=== PATIENT | female | born 1935 | race Caucasian/White ===

== ENCOUNTER 2016-11-28 10:21 | Emergency (ER) | payer MEDICARE, OTHER ==
[2016-11-28 10:29] VITALS: BP 158/84
[2016-11-28] MEDS ORDERED: DIPH/PERTUSS(ACELL)/TETANUS VAC/PF 0.5 ML SYR (>=10YO) IM ONE (11:10)
[2016-11-28] MEDS ORDERED: LIDOCAINE 1% INJ-PF (10 MG/ML) 30 ML SDV INJ ONE (11:10)
--- NOTE | 2016-11-28 11:11 | ER Document Report ---
ED ENT - General Chief Complaint: Ear Injury Stated Complaint: FALL/LEFT EAR INJURY Time Seen by Provider: 11/28/16 10:48 Mode of Arrival: Ambulatory Information source: Patient Notes: Patient is an 81-year-old female who presents to the ER today after falling on a piano, only hitting her left ear on something metal sticking up out of the piano that she does not know what it was. Patient states that she did not realize anything was wrong, nor feel any pain until she had someone tell her that her ear had a cut. She states bleeding is controlled. She is not on any blood thinners. She does not know when her last tetanus booster was. TRAVEL OUTSIDE OF THE [place] IN LAST 30 DAYS: No - Related Data Allergies/Adverse Reactions: No Known Allergies Allergy (Verified 11/28/16 10:28) Past Medical History - General Information source: Patient - Social History Smoking Status: Never Smoker Chew tobacco use (# tins/day): No Frequency of alcohol use: None Drug Abuse: None Family History: Reviewed & Not Pertinent Patient has suicidal ideation: No Patient has homicidal ideation: No - Past Medical History Cardiac Medical History: Reports: Hx Hypertension - [place] Denies: Hx Heart Attack Pulmonary Medical History: Denies: Hx Asthma Neurological Medical History: Denies: Hx Cerebrovascular Accident, Hx Seizures Renal/ Medical History: Denies: Hx Peritoneal Dialysis GI Medical History: Denies: Hx Hepatitis, Hx Hiatal Hernia, Hx Ulcer Infectious Medical History: Denies: Hx Hepatitis Past Surgical History: Denies: Hx Mastectomy, Hx Open Heart Surgery, Hx Pacemaker Review of Systems - Review of Systems Constitutional: No symptoms reported EENT: See HPI Cardiovascular: No symptoms reported Respiratory: No symptoms reported Gastrointestinal: No symptoms reported Genitourinary: No symptoms reported Female Genitourinary: No symptoms reported Musculoskeletal: No symptoms reported Skin: No symptoms reported Hematologic/Lymphatic: No symptoms reported Neurological/Psychological: No symptoms reported Physical Exam - Vital signs Vitals: Temp Pulse Resp BP Pulse Ox 98.2 F 107 H 20 158/84 H 96 11/28/16 10:29 11/28/16 10:29 11/28/16 10:29 11/28/16 10:29 11/28/16 10:29 - Notes Notes: PHYSICAL EXAMINATION: GENERAL: Well-appearing and in no acute distress. HEAD: dried blood to left ear, normocephalic. EYES: Pupils equal round and reactive to light, extraocular movements intact, sclera anicteric, conjunctiva are normal. ENT: With large laceration, irregular, through helix, antihelix including cartilage, no bleeding NECK: Normal range of motion, supple without lymphadenopathy LUNGS: CTAB and equal. No wheezes rales or rhonchi. HEART: Regular rate and rhythm without murmurs EXTREMITIES: Normal range of motion, no pitting edema. No cyanosis. NEUROLOGICAL: Cranial nerves grossly intact. Normal sensory/motor exams. PSYCH: Normal mood, normal affect. SKIN: Warm, Dry, normal turgor,see ENT above Course - Re-evaluation Re-evalutation: 11/28/16 15:20 ear was repaired with vicryl sutures successfully, xeroform and pressure dressing applied to prevent hematoma. Pt advised to wear until tomorrow and not to wet ear for 1 week. - Vital Signs Vital signs: Temp Pulse Resp BP Pulse Ox 98.2 F 107 H 20 158/84 H 96 11/28/16 10:29 11/28/16 10:29 11/28/16 10:29 11/28/16 10:29 11/28/16 10:29 Procedures - Laceration/Wound Repair Left Head Time completed: 01:07 Wound length (cm): 7 Wound's Depth, Shape: Irregular, Contused tissue, Other - through cartilage Laceration pre-procedure: Sterile PPE donned, Betadine prep applied, Sterile drapes applied Anesthetic type: 2% Lidocaine Volume Anesthetic (mLs): 10 Wound explored: Clean Irrigated w/ Saline (mLs): 30 Wound Repaired With: Sutures Suture Size/Type: 6:0, Vicryl Number of Sutures: 12 Layer Closure?: Yes Deep Layer Suture Size/Type: 6:0, Gut Number Deep Layer Sutures: 3 Post-procedure wound care: Sterile dressing applied, Other - pressure dressing to prevent hematoma Post-procedure NV exam normal: Yes Complications: No Discharge - Discharge Clinical Impression: Laceration of ear Qualifiers: Encounter type: initial encounter Laterality: left Qualified Code(s): S01.312A - Laceration without foreign body of left ear, initial encounter Disposition: HOME, SELF-CARE Additional Instructions: Your sutures are dissolvable. Please do not get wet for about a week to allow the sutures to heal the wound appropriately. Please keep pressure bandage on until the morning to prevent hematoma. return immediately for any new or worsening symptoms. Follow up with primary care provider, call tomorrow to make followup appointment. Referrals: CORINE BATES MD [Primary Care Provider] - Follow up as needed
[2016-11-28] MEDS ORDERED: LIDOCAINE 1%/EPINEPHRINE INJ 20 ML VIAL INJ ONE (11:38)
[2016-11-28] MEDS ORDERED: LIDOCAINE 2% JELLY 30 ML TUBE TOP ONE (11:40)
== END 2016-11-28 13:55 | disposition home or self-care (01) ==
LOC: ER 10:21
PROC: 0HQ3XZZ Repair Left Ear Skin, External Approach (ICD-10-PCS; principal; 2016-11-28)
DX: S01.312A Laceration without foreign body of left ear, initial encounter (principal); W08.XXXA Fall from other furniture, initial encounter; Z23 Encounter for immunization; I10 Essential (primary) hypertension
CPT/HCPCS: 99282; 90471; 90715; 12053; J3490 ×2

== ENCOUNTER 2017-05-03 06:20 | Day surgery (SDC) | payer MEDICARE ==
[~2017-05-03 06:20] MED LIST: BUPIVACAINE HCL 0.75% INJ/PF (7.5 MG/1 ML) 10 ML SDV OD PRN; KETOROLAC TROMETHAMINE 0.45% 4 DROP/0.4 ML DROPERETTE OD PRN; LIDOCAINE 4% INJ/PF (40 MG/ML) 5 ML AMPUL OD PRN
[2017-05-03] MEDS: CYCLOPENTOLATE 0.2%/PHENYLEPHRINE 1% OPH SOLN 2 ML OD PRN ×3 (06:50→07:12)
[2017-05-03] MEDS: BESIFLOXACIN HCL 0.6% OPH SUSP 5 ML BOTTLE OD PRN ×3 (06:50→08:00)
[2017-05-03] MEDS: TROPICAMIDE 1% OPH SOLN 3 ML OD PRN ×3 (06:50→07:12)
[2017-05-03] MEDS: TETRACAINE HCL 0.5% OPH SOLN 0.6 ML DROPERETTE OD PRN ×3 (06:50→07:42)
[2017-05-03] MEDS ORDERED: LIDOCAINE 1% INJ-PF (10 MG/ML) 30 ML SDV ONE (07:07)
[2017-05-03] MEDS ORDERED: EPINEPHRINE INJ/PF 1 MG/1 ML AMPULE ONE (07:07)
[2017-05-03] MEDS ORDERED: CHONDR SU A NA/HYALUR INTRAOC KIT (SURGICARE) ONE (07:08)
[2017-05-03 07:41] VITALS: BP 160/80
--- NOTE | 2017-05-03 08:12 | [facility] DISCHARGE SUMMARY E ---
[facility] Discharge Summary NAME: JENNY CARBAJAL AGE: 81Y ADMITTED: 05/03/2017 DISCHARGED: 05/03/2017 PREOPERATIVE DIAGNOSIS: Cataract, right eye. POSTOPERATIVE DIAGNOSIS: Cataract, right eye. HOSPITAL COURSE: The patient is an 81-year-old lady who underwent uneventful cataract extraction with intraocular lens implant, right eye, on 05/03/2017. She will be discharged to home. She was instructed to resume preoperative medications, take Tylenol as needed for discomfort, to keep her eye shielded, to use Besivance, Durezol, and Ilevro at 3 p.m. and 8 p.m., and to followup in my office in 1 day. DICTATING PHYSICIAN: MARYAM PALOMINO M.D. [id number] PHY#: [id number] ID: [id number] JOB#: [id number] ACCT: [id number] cc:MARYAM PALOMINO M.D. >
--- NOTE | 2017-05-03 08:12 | [facility] OPERATIVE REPORT E ---
[facility] Operative Report NAME: JENNY CARBAJAL AGE: 81Y DATE OF SURGERY: 05/03/2017 ROOM: PREOPERATIVE DIAGNOSIS: Cataract, right eye. POSTOPERATIVE DIAGNOSIS: Cataract, right eye. PROCEDURE PERFORMED: Phacoemulsification with posterior chamber intraocular lens, right eye. SURGEON: Kelsi Palomino MD ANESTHESIA: Topical with MAC. INDICATIONS FOR SURGERY: Difficulty reading words on TV and street signs. Best corrected visual acuity 20/50. PROCEDURE: The patient was brought to the operating room and placed on the operative table. Following tetracaine drops, topical anesthesia was administered. This consisted of instrument wipe pledgets soaked in a solution of 4% Xylocaine mixed with 0.75% Marcaine in a 1:2 ratio. A 2 x 1 cm pledget was placed in the superior fornix. A 1 x 1 cm pledget was placed in the inferior fornix. The eye was patched shut for 5 minutes. The patch was removed. The eye was sterilely prepped and draped in the usual manner. Lid speculum was placed in the eye. The pledgets were removed. 4-0 black silk sutures were placed around the superior and the inferior rectus muscles to be used as traction. A conjunctival peritomy was made at the 10 o'clock position. Hemostasis was obtained with bipolar cautery. A posterior limbal groove was created using a crescent knife and dissected anteriorly towards the cornea. A sharp point blade was used to create a paracentesis site at the 2 o'clock position. A 2.4 mm keratome was used to enter the anterior chamber through the groove. Viscoelastic was injected into the anterior chamber. An anterior capsulotomy was performed using Utrata forceps in a capsulorrhexis fashion. Hydrodissection and hydrodelineation were performed. Phacoemulsification was performed in [id number] technique. A total of 54 seconds phaco time was used. Following this, the I/A unit was used to remove residual cortex. Viscoelastic was injected into the capsular bag. Intraocular lens model [id number], 21.0 diopters, serial number [id number] was placed in the capsular bag. The I/A unit was used to remove residual viscoelastic. The wound was seen to be watertight under high and low pressure, and no sutures were placed. The intraocular lens was well centered. The pressure was adjusted in the eye to normal pressure. The 4-0 black silk sutures and lid speculum were removed. The eye was shielded after Besivance drops were placed. The patient tolerated the procedure well and was sent to the recovery room in good condition. DICTATING PHYSICIAN: KELSI PALOMINO M.D. [id number] PHY#: [id number] ID: [id number] JOB#: [id number] ACCT: [id number] cc:KELSI PALOMINO M.D. >
== END 2017-05-03 08:31 | disposition home or self-care (01) ==
LOC: SC 06:20
PROVIDERS: ATTEND Ophthalmology
PROC: 08RJ3JZ Replacement of Right Lens with Synthetic Substitute, Percutaneous Approach (ICD-10-PCS; principal; 2017-05-03 07:30)
DX: H25.811 Combined forms of age-related cataract, right eye (principal); Z87.891 Personal history of nicotine dependence
CPT/HCPCS: 66984; V2632; J3490 ×4; A9270; J0171